=== PATIENT | female | born 1945 | race Hispanic/Latino ===

== ENCOUNTER 2018-09-14 08:47 | Outpatient (CLI) | payer OTHER, MEDICARE ==
--- NOTE | 2018-09-14 10:01 | RAD ---
RIGHT HIP 2 VIEW SERIES: INDICATION: Right hip pain. FINDINGS: There is mild osteoarthritis without fracture or dislocation. Degenerative change is seen within the lower lumbar spine and within the pelvis. There are calcifications of the right hemipelvis not furt her characterized. IMPRESSION: Osteoarthritis of the right hip, without acute fracture. POS: [facility]
--- NOTE | 2018-09-14 10:06 | RAD ---
TWO TO 3 VIEWS LUMBAR SPINE: COMPARISON: . FINDINGS: There is grade I spondylolisthesis at L4-5. Osseous structures are demineralized. There is no evide nce of acute compression fracture. There is prominent degenerative change at the imaged low thoracic spine as well as throughout the lumbar spine. Multilevel degenerative facet sclerosis. Grade I spo ndylolisthesis is seen at L5-S1. Scattered atherosclerotic vascular disease is present. Left convex ity curvature of the lumbar spine is present. IMPRESSION: Multilevel degenerative change of the lumbar spine. No acute compression fracture. POS: [facility]
== END 2018-09-14 08:48 | disposition home or self-care (01) ==
LOC: BICRAD 08:47
PROVIDERS: ATTEND Family Medicine
DX: M54.5 Low back pain (principal); M25.551 Pain in right hip; M47.896 Other spondylosis, lumbar region; M16.11 Unilateral primary osteoarthritis, right hip
CPT/HCPCS: 72100

== ENCOUNTER 2020-02-10 20:49 | Emergency (ER) | payer OTHER, MEDICARE ==
[2020-02-10 21:35] LABS: #Basophils 0.1 thou/uL (0.0-0.2); #Eosinphils 0.1 thou/uL (0.0-0.7); #Lymphocytes 1.2 thou/uL (1.20-3.40); #Monocytes 0.7 thou/uL (0.11-0.59); #Neutrophils 7.5 thou/uL (1.40-6.50); %Basophils 0.6 % (0.0-1.0); %Lymphocytes 12.5 % (21.0-51.0); %Monocytes 7.7 % (0.0-10.0); %Neutrophils 78.2 % (42.0-75.0); Hemoglobin 13.5 g/dL (12.0-16.0); Mean Corpuscular HGB CONC 33.1 g/dL (32.0-36.0); Mean Corpuscular Hemoglobin 30.3 pg (27.0-31.0); Mean Corpuscular Volume 91.5 fL (78.0-98.0); Mean Platelet Volume 7.2 fL (7.4-10.4); Platelet Count 280 thou/uL (130-400); RBC Distribution Width 14.2 % (11.5-14.5); Red Blood Cell (RBC) Count 4.46 mill/uL (4.20-5.40); White Blood Cell (WBC) Count 9.6 thou/uL (4.8-10.8)
[2020-02-10 21:58] LABS: ALT (SGPT) 12 U/L (8-55); AST (SGOT) 11 U/L (5-34); Albumin 4.1 g/dL (3.4-4.8); Alkaline Phosphatase 102 U/L (40-110); Anion Gap 10 mmol/L (10-20); BUN (Urea Nitrogen) 11 mg/dL (9.8-20.1); Bilirubin, Total 0.7 mg/dL (0.2-1.2); Calc. Creatinine Clearance 0 mL/min (70-130); Calcium 9.3 mg/dL (7.8-10.44); Carbon Dioxide 33 mmol/L (23-31); Chloride 99 mmol/L (98-107); Estimated GFR-MDRD 83; Globulin 2.9 g/dL (2.4-3.5); Glucose 157 mg/dL (83-110); Lipase 10 U/L (8-78); Potassium 3.8 mmol/L (3.5-5.1); Sodium 138 mmol/L (136-145)
[2020-02-10 22:54] LABS: Bacteria/HPF None Seen HPF (None Seen); Bilirubin Negative (Negative); Blood, Urine Negative (Negative); Clarity Clear (Clear); Glucose, Urine (Dipstick) Normal (Negative); Leukocyte 75 Leu/uL (Negative); Nitrite Negative (Negative); Protein, Urine (Dipstick) 30 mg/dL (Neg-Trace); Squamous Epithelial 0-3 HPF (0-3); Urobilinogen Normal mg/dL (Less than 2)
[2020-02-11] MEDS ORDERED: Morphine 10 MG/ML VIAL ONE (00:52)
[2020-02-11] MEDS ORDERED: Ondansetron ODT 8 MG TAB ONE (00:52)
--- NOTE | 2020-02-11 07:49 | CT ---
PRELIMINARY REPORT/[facility]/EMERGENCY AFTER HOURS PROCEDURE: PROCEDURE: CT Scan Abdomen and Pelvis without IV Contrast Material. HISTORY: Abdomen pain. TECHNIQUE: Axial images were performed with multiplanar reconstructions without IV contrast material. The patient was not given oral contrast material. COMPARISON: None . FINDINGS: Clear lung bases. Punctate calcified granulomas in the spleen. Liver, adrenals, and pancreas show no abnormality. Kid neys show multiple cortical cysts largest on the RIGHT at 2.5 cm. No urinary tract stones or obstruc tive uropathy. There has been previous cholecystectomy with normal sized biliary tree. No abdominal ascites or pneumoperitoneum. Mild atherosclerosis aorta. No lymphadenopathy. Diverticula with mucosal thickening and pericolonic stranding distal sigmoid colon consistent with di verticulitis with no perforation or abscess. No bowel obstruction. Appendix is not visualized. 14 cm omental umbilical hernia. Pelvis shows previous hysterectomy and no masses or free fluid. Unremarkable urinary bladder. No acute bony abnormality . IMPRESSION: Uncomplicated sigmoid diverticulitis. Large omental umbilical hernia. No other significant abnormality identified. ELECTRONICALLY SIGNED BY: Dat López MD Feb 11, 2020 1:18:43 AM CDT This report is intended for review by the ordering physician only, in accordance of law. If you recei ve this report in error, please call [facility] at [phone]. FINAL REPORT [facility] AFTER HOURS CT ABDOMEN AND PELVIS WITHOUT CONTRAST: FINDINGS/IMPRESSION: I agree with the findings and impression given in the preliminary report per [facility] physici an. 1. Acute diverticulitis. 2. Bilateral renal cysts. 3. Ventral hernia containing fat.
== END 2020-02-11 01:35 | disposition home or self-care (01) ==
LOC: ERS 20:49
DX: K57.32 Diverticulitis of large intestine without perforation or abscess without bleeding (principal); E11.9 Type 2 diabetes mellitus without complications; E78.5 Hyperlipidemia, unspecified; I10 Essential (primary) hypertension
CPT/HCPCS: 36415; 74176; 80053; 81003; 81015; 83690; 85025; 96372; J2270

== ENCOUNTER 2020-04-23 20:00 | Emergency (ER) | payer OTHER, MEDICARE ==
[2020-04-23] MEDS ORDERED: Meclizine HCl 25 MG TAB ONE (21:24)
[2020-04-23 21:25] LABS: #Eosinphils 0.1 thou/uL (0.0-0.7); #Lymphocytes 1.5 thou/uL (1.20-3.40); #Monocytes 0.6 thou/uL (0.11-0.59); #Neutrophils 3.7 thou/uL (1.40-6.50); %Basophils 0.1 % (0.0-1.0); %Eosinophils 1.8 % (0.0-10.0); %Lymphocytes 25.5 % (21.0-51.0); %Monocytes 9.5 % (0.0-10.0); %Neutrophils 63.2 % (42.0-75.0); Hemoglobin 14.1 g/dL (12.0-16.0); Mean Corpuscular HGB CONC 31.9 g/dL (32.0-36.0); Mean Corpuscular Hemoglobin 29.9 pg (27.0-31.0); Mean Corpuscular Volume 93.6 fL (78.0-98.0); Mean Platelet Volume 7.5 fL (7.4-10.4); Platelet Count 307 thou/uL (130-400); Red Blood Cell (RBC) Count 4.73 mill/uL (4.20-5.40); White Blood Cell (WBC) Count 5.8 thou/uL (4.8-10.8)
[2020-04-23 21:46] LABS: ALT (SGPT) 15 U/L (8-55); AST (SGOT) 15 U/L (5-34); Albumin 4.1 g/dL (3.4-4.8); Alkaline Phosphatase 90 U/L (40-110); Anion Gap 15 mmol/L (10-20); BUN (Urea Nitrogen) 12 mg/dL (9.8-20.1); Bilirubin, Total 0.4 mg/dL (0.2-1.2); Calc. Creatinine Clearance 0 mL/min (70-130); Calcium 9.7 mg/dL (7.8-10.44); Carbon Dioxide 28 mmol/L (23-31); Chloride 100 mmol/L (98-107); Estimated GFR-MDRD 80; Globulin 3.1 g/dL (2.4-3.5); Glucose 150 mg/dL (83-110); Protein, Total 7.2 g/dL (6.0-8.3); Sodium 139 mmol/L (136-145)
--- NOTE | 2020-04-24 07:38 | CT ---
HEAD CT WITHOUT CONTRAST: DATE: 04/23/2020. COMPARISON: None. HISTORY: Dizziness. TECHNIQUE: Axial CT imaging at 5 mm intervals from vertex through the skull base without contrast. FINDINGS: The imaged paranasal sinuses and mastoid air cells are well aerated. No displaced calvarial fracture . No intracranial hemorrhage, midline shift, or mass effect. There is a low-density area anteriorly near the vertex on the left suggesting an incidentally noted s mall arachnoid cyst. IMPRESSION: No acute findings. Incidental findings as detailed above. POS: [facility]
--- NOTE | 2020-04-24 07:40 | RAD ---
FRONTAL RADIOGRAPH CHEST: DATE: 04/23/2020. COMPARISON: None. HISTORY: Dizziness and nausea. FINDINGS: Lungs appear clear. Heart and mediastinal contours are grossly unremarkable. There is atherosclerot ic calcification in the aortic arch. IMPRESSION: No focal consolidation or alveolar edema. POS: [facility]
== END 2020-04-23 23:10 | disposition home or self-care (01) ==
LOC: ERS 20:00
DX: R42 Dizziness and giddiness (principal); E11.9 Type 2 diabetes mellitus without complications; E78.5 Hyperlipidemia, unspecified; E78.00 Pure hypercholesterolemia, unspecified; I10 Essential (primary) hypertension; E03.9 Hypothyroidism, unspecified; Z79.4 Long term (current) use of insulin
CPT/HCPCS: 70450; 71045; 80053; 85025; 93005

== ENCOUNTER 2021-02-24 19:00 | Outpatient (CLI) | payer MEDICARE, OTHER | END 2021-02-24 19:01 | disposition home or self-care (01) | LOC: SLEEPLAB 19:00 | PROVIDERS: ATTEND Internal Medicine Cardiovascular Disease | DX: G47.33 Obstructive sleep apnea (adult) (pediatric) (principal); G47.19 Other hypersomnia; G47.9 Sleep disorder, unspecified; R53.83 Other fatigue; I10 Essential (primary) hypertension; R06.83 Snoring; I25.10 Atherosclerotic heart disease of native coronary artery without angina pectoris; E11.9 Type 2 diabetes mellitus without complications; G47.00 Insomnia, unspecified; E66.9 Obesity, unspecified; Z68.43 Body mass index [BMI] 50.0-59.9, adult | CPT/HCPCS: 95810 ==

== ENCOUNTER 2021-04-18 19:00 | Outpatient (CLI) | payer MEDICARE, OTHER | END 2021-04-18 19:01 | disposition home or self-care (01) | LOC: SLEEPLAB 19:00 | PROVIDERS: ATTEND Internal Medicine Cardiovascular Disease | DX: G47.33 Obstructive sleep apnea (adult) (pediatric) (principal); G47.419 Narcolepsy without cataplexy; G47.9 Sleep disorder, unspecified; R53.83 Other fatigue; R06.83 Snoring; E66.9 Obesity, unspecified; I10 Essential (primary) hypertension; Z68.43 Body mass index [BMI] 50.0-59.9, adult | CPT/HCPCS: 95811 ==

== ENCOUNTER 2021-05-05 06:11 | Observation (INO) | payer MEDICARE, OTHER ==
[2021-05-05] MEDS ORDERED: Ondansetron ODT 4 MG TAB ONE (06:37)
[2021-05-05] MEDS ORDERED: Meclizine HCl 25 MG TAB ONE ×2 (06:37→06:38)
[2021-05-05 07:03] LABS: #Eosinphils 0.1 thou/uL (0.0-0.7); #Lymphocytes 1.3 thou/uL (1.20-3.40); #Monocytes 0.5 thou/uL (0.11-0.59); #Neutrophils 3.1 thou/uL (1.40-6.50); %Basophils 0.6 % (0.0-1.0); %Eosinophils 2.5 % (0.0-10.0); %Lymphocytes 26.5 % (21.0-51.0); %Monocytes 8.9 % (0.0-10.0); %Neutrophils 61.5 % (42.0-75.0); Hemoglobin 13.1 g/dL (12.0-16.0); Mean Corpuscular HGB CONC 34.5 g/dL (32.0-36.0); Mean Corpuscular Hemoglobin 31.5 pg (27.0-31.0); Mean Corpuscular Volume 91.4 fL (78.0-98.0); Mean Platelet Volume 6.6 fL (7.4-10.4); Platelet Count 269 thou/uL (130-400); RBC Distribution Width 13.9 % (11.5-14.5); Red Blood Cell (RBC) Count 4.16 mill/uL (4.20-5.40)
[2021-05-05 07:23] LABS: ALT (SGPT) 13 U/L (8-55); AST (SGOT) 16 U/L (5-34); Albumin 3.9 g/dL (3.4-4.8); Alkaline Phosphatase 95 U/L (40-110); Anion Gap 14 mmol/L (10-20); BUN (Urea Nitrogen) 14 mg/dL (9.8-20.1); Bilirubin, Total 0.3 mg/dL (0.2-1.2); Calc. Creatinine Clearance 0 mL/min (70-130); Calcium 8.8 mg/dL (7.8-10.44); Carbon Dioxide 25 mmol/L (23-31); Chloride 102 mmol/L (98-107); Globulin 3.1 g/dL (2.4-3.5); Glucose 112 mg/dL (83-110); Sodium 137 mmol/L (136-145)
[2021-05-05] MEDS ORDERED: Ondansetron PF 4 MG/2 ML Vial IVP PRN (09:18)
[2021-05-05] MEDS ORDERED: Senokot S 8.6-50 MG TAB PO PRN (09:18)
[2021-05-05] MEDS ORDERED: Ondansetron ODT 4 MG TAB PO PRN (09:18)
[2021-05-05] MEDS ORDERED: Dextrose 5% in Water 1,000 ML IV PRN (09:20)
[2021-05-05] MEDS ORDERED: Dextrose 50% Abboject 50 ML SYRINGE SLOW IVP PRN (09:20)
[2021-05-05] MEDS ORDERED: Insulin Regular 300 UNITS/3 ML VIAL SC PRN ×2 (09:20)
[2021-05-05] MEDS ORDERED: Aspirin 325 mg Enteric Coated Tablet PO SCH ×2 (09:30→10:30)
[2021-05-05] MEDS ORDERED: Diazepam 5 MG TAB ONE (09:37)
[2021-05-05] MEDS ORDERED: hydrALAZINE 25 MG TAB PO PRN (09:52)
[2021-05-05] MEDS ORDERED: Amlodipine 5 MG TAB PO PRN (09:52)
[2021-05-05] MEDS ORDERED: Amlodipine 5 MG TAB PO SCH (10:00)
[2021-05-05 10:43] LABS: Troponin I Less than 0.010 ng/mL (< 0.028)
[2021-05-05] MEDS: Losartan 25 MG TAB PO SCH (11:18)
[2021-05-05] MEDS: Hydrochlorothiazide 25 MG TAB PO SCH (11:19)
[2021-05-05] MEDS: Meclizine HCl 25 MG TAB PO SCH ×2 (12:45→20:33)
[2021-05-05 13:05] LABS: Cardiac Risk 3.2 (Less than 4.5)
[2021-05-05] MEDS ORDERED: Cyanocobalamin 1000 MCG/ML VIAL IM SCH (13:15)
[2021-05-05 14:46] LABS: SARS-CoV-2 PCR by NAA Not Detected (NotDetected)
[2021-05-05] MEDS: metFORMIN 500 MG TAB PO SCH (16:26)
[2021-05-05] MEDS ORDERED: Enoxaparin Sodium 40 MG/0.4 ML SYRINGE SC SCH (21:00)
[2021-05-05] MEDS ORDERED: Famotidine 20 MG TAB PO SCH (21:00)
[2021-05-05] MEDS ORDERED: Lantus 1000 UNITS/10 ML VIAL SC SCH ×2 (21:00)
[2021-05-05] MEDS ORDERED: Atorvastatin Calcium 40 MG TAB PO SCH (21:00)
[2021-05-06] MEDS ORDERED: Levothyroxine Sodium 50 MCG TAB PO SCH (06:00)
[2021-05-06] MEDS: Meclizine HCl 25 MG TAB PO SCH ×2 (06:05→14:02)
[2021-05-06] MEDS ORDERED: Pioglitazone HCl 15 MG TAB PO SCH (09:00)
[2021-05-06] MEDS ORDERED: Cyanocobalamin (Vitamin B-12) 1,000 MCG TAB PO SCH (09:00)
[2021-05-06] MEDS ORDERED: Multivitamin W/ Minerals 1 TAB PO SCH (09:00)
[2021-05-06] MEDS ORDERED: Amlodipine 5 MG TAB PO SCH (09:00)
[2021-05-06] MEDS ORDERED: Ezetimibe 10 MG TAB PO SCH (09:00)
[2021-05-06] MEDS ORDERED: Aspirin 325 mg Enteric Coated Tablet PO SCH (09:00)
[2021-05-06] MEDS ORDERED: Rosuvastatin 20 MG TAB PO SCH (09:00)
[2021-05-06] MEDS: metFORMIN 500 MG TAB PO SCH (09:23)
[2021-05-06] MEDS: Hydrochlorothiazide 25 MG TAB PO SCH (11:16)
[2021-05-06] MEDS: Losartan 25 MG TAB PO SCH (11:16)
[2021-05-06 11:19] VITALS: TEMP 97.6
[2021-05-06 11:20] VITALS: BMI 59.5
[2021-05-06 12:05] VITALS: BP 148/65
== END 2021-05-06 14:54 | disposition home or self-care (01) ==
LOC: ERS 06:11 → 2SW 08:59
PROVIDERS: ADMIT Internal Medicine; ATTEND Internal Medicine
DX: R42 Dizziness and giddiness (principal); I10 Essential (primary) hypertension; E78.5 Hyperlipidemia, unspecified; E11.9 Type 2 diabetes mellitus without complications; E03.9 Hypothyroidism, unspecified; M19.90 Unspecified osteoarthritis, unspecified site; K21.9 Gastro-esophageal reflux disease without esophagitis; I87.8 Other specified disorders of veins; F40.240 Claustrophobia; E66.01 Morbid (severe) obesity due to excess calories; Z68.43 Body mass index [BMI] 50.0-59.9, adult; Z79.4 Long term (current) use of insulin; Z79.899 Other long term (current) drug therapy; Z20.822 Contact with and (suspected) exposure to COVID-19; Z86.73 Personal history of transient ischemic attack (TIA), and cerebral infarction without residual deficits
CPT/HCPCS: 70450; 80053; 80061; 82607; 82746; 82962 ×2; 84484; 85025; 93005; 93880; 94760; 96372; 97139 ×6; 97535; 99285; G0378 ×3; U0003; U0005; 36415; 36416; J1650; J3420; Q0162

== ENCOUNTER 2021-07-14 17:23 | Emergency (ER) | payer MEDICARE, OTHER ==
[2021-07-14 20:14] LABS: #Eosinphils 0.1 thou/uL (0.0-0.7); #Lymphocytes 1.4 thou/uL (1.20-3.40); #Monocytes 0.5 thou/uL (0.11-0.59); #Neutrophils 3.5 thou/uL (1.40-6.50); %Basophils 0.5 % (0.0-1.0); %Eosinophils 2.2 % (0.0-10.0); %Lymphocytes 24.6 % (21.0-51.0); %Monocytes 9.3 % (0.0-10.0); %Neutrophils 63.4 % (42.0-75.0); Hemoglobin 13.2 g/dL (12.0-16.0); Mean Corpuscular HGB CONC 33.7 g/dL (32.0-36.0); Mean Corpuscular Hemoglobin 30.9 pg (27.0-31.0); Mean Corpuscular Volume 91.7 fL (78.0-98.0); Mean Platelet Volume 6.4 fL (7.4-10.4); Platelet Count 283 thou/uL (130-400); Red Blood Cell (RBC) Count 4.26 mill/uL (4.20-5.40); White Blood Cell (WBC) Count 5.6 thou/uL (4.8-10.8)
[2021-07-14 20:34] LABS: ALT (SGPT) 15 U/L (8-55); AST (SGOT) 14 U/L (5-34); Albumin 3.9 g/dL (3.4-4.8); Alkaline Phosphatase 116 U/L (40-110); Anion Gap 12 mmol/L (10-20); BUN (Urea Nitrogen) 11 mg/dL (9.8-20.1); Bilirubin, Total 0.3 mg/dL (0.2-1.2); Calc. Creatinine Clearance 0 mL/min (70-130); Carbon Dioxide 29 mmol/L (23-31); Chloride 102 mmol/L (98-107); Globulin 3.4 g/dL (2.4-3.5); Glucose 160 mg/dL (83-110); Potassium 4.1 mmol/L (3.5-5.1); Protein, Total 7.3 g/dL (5.8-8.1); Sodium 139 mmol/L (136-145)
[2021-07-14] MEDS ORDERED: Acetaminophen 500 MG TAB ONE (21:43)
== END 2021-07-14 22:56 | disposition home or self-care (01) ==
LOC: ERS 17:23
DX: I87.8 Other specified disorders of veins (principal); E66.9 Obesity, unspecified; I10 Essential (primary) hypertension; E11.9 Type 2 diabetes mellitus without complications; E78.5 Hyperlipidemia, unspecified; E03.9 Hypothyroidism, unspecified; E78.00 Pure hypercholesterolemia, unspecified; Z79.4 Long term (current) use of insulin
CPT/HCPCS: 36415; 80053; 83605; 83880; 85025; 87040; 93970

== ENCOUNTER 2021-11-29 01:01 | Observation (INO) | payer MEDICARE, OTHER ==
[2021-11-29 02:08] LABS: #Monocytes 0.5 thou/uL (0.11-0.59); #Neutrophils 6.9 thou/uL (1.40-6.50); %Basophils 0.3 % (0.0-1.0); %Eosinophils 0.6 % (0.0-10.0); %Lymphocytes 11.7 % (21.0-51.0); %Monocytes 5.6 % (0.0-10.0); %Neutrophils 81.9 % (42.0-75.0); Hemoglobin 14.4 g/dL (12.0-16.0); Mean Corpuscular HGB CONC 34.4 g/dL (32.0-36.0); Mean Corpuscular Hemoglobin 31.7 pg (27.0-31.0); Mean Corpuscular Volume 91.9 fL (78.0-98.0); Mean Platelet Volume 6.9 fL (7.4-10.4); Platelet Count 285 thou/uL (130-400); RBC Distribution Width 14.3 % (11.5-14.5); Red Blood Cell (RBC) Count 4.54 mill/uL (4.20-5.40); White Blood Cell (WBC) Count 8.4 thou/uL (4.8-10.8)
[2021-11-29] MEDS ORDERED: Morphine 4 MG/ML VIAL ONE (02:32)
[2021-11-29 02:38] LABS: Albumin 4.3 g/dL (3.4-4.8); Chloride 101 mmol/L (98-107)
[2021-11-29 02:39] LABS: Calcium 10.1 mg/dL (7.8-10.44); Potassium 4.4 mmol/L (3.5-5.1); Sodium 140 mmol/L (136-145)
[2021-11-29 02:40] LABS: Globulin 3.8 g/dL (2.4-3.5); Glucose 145 mg/dL (83-110); Protein, Total 8.1 g/dL (5.8-8.1)
[2021-11-29 02:41] LABS: Anion Gap 15 mmol/L (10-20); Carbon Dioxide 28 mmol/L (23-31)
[2021-11-29 02:42] LABS: Bilirubin, Total 0.4 mg/dL (0.2-1.2)
[2021-11-29 02:43] LABS: Alkaline Phosphatase 92 U/L (40-110); Calc. Creatinine Clearance 0 mL/min (70-130)
[2021-11-29 02:44] LABS: BUN (Urea Nitrogen) 15 mg/dL (9.8-20.1)
[2021-11-29 02:45] LABS: AST (SGOT) 22 U/L (5-34)
[2021-11-29 02:46] LABS: ALT (SGPT) 16 U/L (8-55); Lipase 26 U/L (8-78)
[2021-11-29 04:46] LABS: Bacteria/HPF None Seen HPF (None Seen); Bilirubin Negative (Negative); Blood, Urine Trace (Negative); Clarity Clear (Clear); Glucose, Urine (Dipstick) Greater than 1000 mg/dL (Negative); Ketone, Urine Negative (Negative); Leukocyte Negative Leu/uL (Negative); Nitrite Negative (Negative); Protein, Urine (Dipstick) Negative (Neg-Trace); RBC/HPF 0-3 HPF (0-3); Specific Gravity, Urine 1.038 (1.002-1.036); Squamous Epithelial None Seen HPF (0-3); Urobilinogen Normal mg/dL (Less than 2); pH, Urine 6.5 (5.0-9.0)
[2021-11-29] MEDS ORDERED: Sodium Chloride 0.9% 1,000 ML IV SCH (06:15)
[2021-11-29] MEDS ORDERED: Acetaminophen 325 MG TAB PO PRN (06:15)
[2021-11-29 06:18] VITALS: BMI 63.8
[2021-11-29] MEDS ORDERED: Dextrose 50% Abboject 50 ML SYRINGE SLOW IVP PRN (07:00)
[2021-11-29] MEDS ORDERED: HumaLOG 300 UNITS/3 ML VIAL SC PRN ×2 (07:00)
[2021-11-29] MEDS ORDERED: Dextrose 5% in Water 1,000 ML IV PRN (07:00)
[2021-11-29] MEDS ORDERED: hydrALAZINE 20 MG/ML VIAL SLOW IVP PRN (07:01)
[2021-11-29] MEDS ORDERED: Ondansetron PF 4 MG/2 ML Vial IVP PRN (07:06)
[2021-11-29] MEDS ORDERED: Ondansetron ODT 4 MG TAB PO PRN (07:06)
[2021-11-29 07:57] LABS: Magnesium 2.2 mg/dL (1.6-2.6)
[2021-11-29] MEDS: Pantoprazole 40 MG VIAL IVP SCH (09:22)
[2021-11-29] MEDS: Sodium Chloride 0.9% 1,000 ML IV SCH ×2 (09:26→17:42)
[2021-11-29 09:29] LABS: SARS-CoV-2 NAA Rapid Test Not Detected (NotDetected)
[2021-11-29] MEDS: Ketorolac Tromethamine 30 MG/ML VIAL IVP PRN ×2 (11:11→20:43)
[2021-11-29] MEDS ORDERED: Iopamidol-370 76% 500 ML 1 ML ONE (11:52)
[2021-11-29] MEDS ORDERED: Amlodipine 5 MG TAB PO SCH (12:45)
[2021-11-29] MEDS ORDERED: FLU VACC QS2021-22(65YR UP)/PF 240 MCG/0.7 ML SYRINGE IM ONE (14:00)
[2021-11-29] MEDS: Brimonidine Tartrate 0.2% Ophth Soln 5 ml Bottle L EYE SCH (20:42)
[2021-11-29] MEDS: Timolol 0.5% Ophth Soln 5 ml Bottle L EYE SCH (20:47)
[2021-11-30] MEDS: Ketorolac Tromethamine 30 MG/ML VIAL IVP PRN (05:14)
[2021-11-30] MEDS: Sodium Chloride 0.9% 1,000 ML IV SCH (05:27)
[2021-11-30] MEDS ORDERED: Levothyroxine Sodium 50 MCG TAB PO SCH (06:00)
[2021-11-30 07:12] LABS: #Eosinphils 0.1 thou/uL (0.0-0.7); #Lymphocytes 1.1 thou/uL (1.20-3.40); #Monocytes 0.5 thou/uL (0.11-0.59); #Neutrophils 3.2 thou/uL (1.40-6.50); %Basophils 0.1 % (0.0-1.0); %Lymphocytes 22.5 % (21.0-51.0); %Monocytes 9.6 % (0.0-10.0); %Neutrophils 64.7 % (42.0-75.0); Hemoglobin 12.7 g/dL (12.0-16.0); Mean Corpuscular HGB CONC 32.8 g/dL (32.0-36.0); Mean Corpuscular Hemoglobin 30.2 pg (27.0-31.0); Mean Corpuscular Volume 91.9 fL (78.0-98.0); Mean Platelet Volume 6.5 fL (7.4-10.4); Platelet Count 249 thou/uL (130-400); RBC Distribution Width 14.4 % (11.5-14.5); Red Blood Cell (RBC) Count 4.19 mill/uL (4.20-5.40); White Blood Cell (WBC) Count 4.9 thou/uL (4.8-10.8)
[2021-11-30 07:30] LABS: Anion Gap 11 mmol/L (10-20); BUN (Urea Nitrogen) 11 mg/dL (9.8-20.1); Calc. Creatinine Clearance 199 mL/min (70-130); Calcium 8.5 mg/dL (7.8-10.44); Carbon Dioxide 27 mmol/L (23-31); Chloride 105 mmol/L (98-107); Glucose 178 mg/dL (83-110); Potassium 3.6 mmol/L (3.5-5.1); Sodium 139 mmol/L (136-145)
[2021-11-30] MEDS: Pantoprazole 40 MG VIAL IVP SCH (07:57)
[2021-11-30] MEDS: Timolol 0.5% Ophth Soln 5 ml Bottle L EYE SCH (07:57)
[2021-11-30] MEDS: Brimonidine Tartrate 0.2% Ophth Soln 5 ml Bottle L EYE SCH (07:57)
[2021-11-30] MEDS ORDERED: Amlodipine 5 MG TAB PO SCH (09:00)
[2021-11-30] MEDS ORDERED: Saccharomyces boulardii 250 MG CAP PO SCH (09:00)
[2021-11-30] MEDS ORDERED: BROMFENAC SODIUM R EYE SCH (09:00)
[2021-11-30] MEDS ORDERED: Polyethylene Glycol 3350 17 GM Packet PO SCH (11:30)
[2021-11-30 16:38] VITALS: BP 146/75; TEMP 98
[2021-12-01] MEDS ORDERED: Polyethylene Glycol 3350 17 GM Packet PO SCH (09:00)
== END 2021-11-30 17:03 | disposition home or self-care (01) ==
LOC: ERS 01:01 → T4-A 04:17
PROVIDERS: ADMIT Student in an Organized Health Care Education/Training Program; ATTEND Nurse Practitioner Family
DX: K56.600 Partial intestinal obstruction, unspecified as to cause (principal); K42.9 Umbilical hernia without obstruction or gangrene; K57.30 Diverticulosis of large intestine without perforation or abscess without bleeding; I16.0 Hypertensive urgency; E11.9 Type 2 diabetes mellitus without complications; I10 Essential (primary) hypertension; E78.5 Hyperlipidemia, unspecified; H40.9 Unspecified glaucoma; E03.9 Hypothyroidism, unspecified; K21.9 Gastro-esophageal reflux disease without esophagitis; N39.0 Urinary tract infection, site not specified; Z79.4 Long term (current) use of insulin; Z79.84 Long term (current) use of oral hypoglycemic drugs; Z79.890 Hormone replacement therapy; Z79.899 Other long term (current) drug therapy
CPT/HCPCS: 74018; 74177; 80048; 82962 ×2; 83690; 83735; 85025; 93005; U0002; 36415; 36416; 80053; 81003; 81015; 84443; 96374; 96375; 96376; C9113; G0378; J0360; J0744; J1885; J2270; J2405; J7050; Q9967

== ENCOUNTER 2022-03-01 12:45 | Emergency (ER) | payer MEDICARE, OTHER ==
[2022-03-01 13:33] LABS: #Lymphocytes 1.2 thou/uL (1.20-3.40); #Monocytes 0.4 thou/uL (0.11-0.59); #Neutrophils 3.6 thou/uL (1.40-6.50); %Basophils 0.2 % (0.0-1.0); %Eosinophils 0.9 % (0.0-10.0); %Lymphocytes 22.1 % (21.0-51.0); %Monocytes 8.3 % (0.0-10.0); %Neutrophils 68.5 % (42.0-75.0); Hemoglobin 12.5 g/dL (12.0-16.0); Mean Corpuscular HGB CONC 31.1 g/dL (32.0-36.0); Mean Corpuscular Hemoglobin 29.2 pg (27.0-31.0); Mean Corpuscular Volume 93.8 fL (78.0-98.0); Mean Platelet Volume 6.8 fL (7.4-10.4); Platelet Count 269 thou/uL (130-400); RBC Distribution Width 15.4 % (11.5-14.5); Red Blood Cell (RBC) Count 4.29 mill/uL (4.20-5.40); White Blood Cell (WBC) Count 5.3 thou/uL (4.8-10.8)
[2022-03-01 13:56] LABS: ALT (SGPT) 15 U/L (8-55); AST (SGOT) 15 U/L (5-34); Albumin 3.9 g/dL (3.4-4.8); Alkaline Phosphatase 104 U/L (40-110); Anion Gap 11 mmol/L (10-20); BUN (Urea Nitrogen) 15 mg/dL (9.8-20.1); Bilirubin, Total 0.3 mg/dL (0.2-1.2); Calc. Creatinine Clearance 0 mL/min (70-130); Calcium 8.8 mg/dL (7.8-10.44); Carbon Dioxide 25 mmol/L (23-31); Chloride 107 mmol/L (98-107); Glucose 230 mg/dL (83-110); Lipase 22 U/L (8-78); Potassium 4.2 mmol/L (3.5-5.1); Protein, Total 6.9 g/dL (5.8-8.1); Sodium 139 mmol/L (136-145)
[2022-03-01] MEDS ORDERED: Morphine 4 MG/ML VIAL ONE (14:09)
[2022-03-01 14:14] LABS: Bilirubin Negative (Negative); Blood, Urine Negative (Negative); Clarity Clear (Clear); Glucose, Urine (Dipstick) Greater than 1000 mg/dL (Negative); Ketone, Urine Negative (Negative); Leukocyte Negative Leu/uL (Negative); Nitrite Negative (Negative); Protein, Urine (Dipstick) Negative (Neg-Trace); Specific Gravity, Urine 1.038 (1.002-1.036); Urobilinogen Normal mg/dL (Less than 2); pH, Urine 5.5 (5.0-9.0)
== END 2022-03-01 15:43 | disposition home or self-care (01) ==
LOC: ERS 12:45
DX: R10.30 Lower abdominal pain, unspecified (principal); I10 Essential (primary) hypertension; E11.9 Type 2 diabetes mellitus without complications; E78.5 Hyperlipidemia, unspecified; E78.00 Pure hypercholesterolemia, unspecified; E03.9 Hypothyroidism, unspecified; Z79.4 Long term (current) use of insulin; Z79.899 Other long term (current) drug therapy
CPT/HCPCS: 36415; 74177; 80053; 81003; 83690; 85025; 96374; J2270

== ENCOUNTER 2022-04-29 05:38 | Emergency (ER) | payer MEDICARE, OTHER ==
[2022-04-29] MEDS ORDERED: Diazepam 5 MG TAB ONE (06:16)
[2022-04-29] MEDS ORDERED: Amlodipine 5 MG TAB ONE (07:02)
[2022-04-29] MEDS ORDERED: Ketorolac Tromethamine 30 MG/ML VIAL ONE (07:02)
== END 2022-04-29 08:14 | disposition home or self-care (01) ==
LOC: ERS 05:38
DX: G44.209 Tension-type headache, unspecified, not intractable (principal); I10 Essential (primary) hypertension; E03.9 Hypothyroidism, unspecified; E11.9 Type 2 diabetes mellitus without complications; E78.5 Hyperlipidemia, unspecified; E78.00 Pure hypercholesterolemia, unspecified; Z79.4 Long term (current) use of insulin; Z79.899 Other long term (current) drug therapy
CPT/HCPCS: 96372; 99283; J1885

== ENCOUNTER 2022-09-25 12:53 | Emergency (ER) | payer MEDICARE, OTHER ==
[2022-09-25 13:46] LABS: #Eosinphils 0.1 thou/uL (0.0-0.7); #Lymphocytes 1.1 thou/uL (1.20-3.40); #Monocytes 0.4 thou/uL (0.11-0.59); #Neutrophils 3.8 thou/uL (1.40-6.50); %Basophils 0.4 % (0.0-1.0); %Eosinophils 1.5 % (0.0-10.0); %Lymphocytes 20.2 % (21.0-51.0); %Monocytes 7.2 % (0.0-10.0); %Neutrophils 70.7 % (42.0-75.0); Hemoglobin 12.7 g/dL (12.0-16.0); Mean Corpuscular HGB CONC 31.4 g/dL (32.0-36.0); Mean Corpuscular Hemoglobin 28.5 pg (27.0-31.0); Mean Corpuscular Volume 90.8 fl (78.0-98.0); Mean Platelet Volume 7.5 fL (7.4-10.4); Platelet Count 258 thou/uL (130-400); RBC Distribution Width 16.4 % (11.5-14.5); Red Blood Cell (RBC) Count 4.47 mill/uL (4.20-5.40); White Blood Cell (WBC) Count 5.3 thou/uL (4.8-10.8)
[2022-09-25 14:09] LABS: ALT (SGPT) 13 U/L (8-55); AST (SGOT) 14 U/L (5-34); Albumin 3.8 g/dL (3.4-4.8); Alkaline Phosphatase 101 U/L (40-110); Anion Gap 12 mmol/L (10-20); BUN (Urea Nitrogen) 11 mg/dL (9.8-20.1); Bilirubin, Total 0.3 mg/dL (0.2-1.2); Calc. Creatinine Clearance 0 mL/min (70-130); Calcium 8.8 mg/dL (7.8-10.44); Carbon Dioxide 27 mmol/L (23-31); Chloride 106 mmol/L (98-107); Estimated GFR 76; Globulin 3.1 g/dL (2.4-3.5); Glucose 153 mg/dL (83-110); Lipase 19 U/L (8-78); Potassium 4.2 mmol/L (3.5-5.1); Protein, Total 6.9 g/dL (5.8-8.1); Sodium 141 mmol/L (136-145)
== END 2022-09-25 16:20 | disposition home or self-care (01) ==
LOC: ERS 12:53
DX: R60.0 Localized edema (principal); E11.9 Type 2 diabetes mellitus without complications; E78.00 Pure hypercholesterolemia, unspecified; E03.9 Hypothyroidism, unspecified; I10 Essential (primary) hypertension; Z79.899 Other long term (current) drug therapy
CPT/HCPCS: 36415; 80053; 83690; 85025; 99284

== ENCOUNTER 2023-01-14 17:17 | Emergency (ER) | payer MEDICARE ==
[~2023-01-14 17:17] MED LIST: Iopamidol-370 76% 500 ML 1 ML ONE
[2023-01-14] MEDS ORDERED: Aspirin Chewable 81 MG TAB ONE (17:38)
[2023-01-14 18:09] LABS: #Basophils 0.1 thou/uL (0.0-0.2); #Eosinphils 0.1 thou/uL (0.0-0.7); #Lymphocytes 1.2 thou/uL (1.20-3.40); #Monocytes 0.5 thou/uL (0.11-0.59); %Basophils 0.9 % (0.0-1.0); %Eosinophils 1.8 % (0.0-10.0); %Lymphocytes 20.1 % (21.0-51.0); %Monocytes 8.9 % (0.0-10.0); %Neutrophils 68.3 % (42.0-75.0); Hemoglobin 12.5 g/dL (12.0-16.0); Mean Corpuscular HGB CONC 32.5 g/dL (32.0-36.0); Mean Corpuscular Hemoglobin 29.1 pg (27.0-31.0); Mean Corpuscular Volume 89.5 fl (78.0-98.0); Mean Platelet Volume 8.5 fL (7.4-10.4); Platelet Count 212 10x3/uL (130-400); Red Blood Cell (RBC) Count 4.31 mill/uL (4.20-5.40); White Blood Cell (WBC) Count 5.9 10x3/uL (4.8-10.8)
[2023-01-14 18:32] LABS: ALT (SGPT) 10 U/L (8-55); AST (SGOT) 16 U/L (5-34); Albumin 3.7 g/dL (3.4-4.8); Alkaline Phosphatase 107 U/L (40-110); Anion Gap 13 mmol/L (10-20); BUN (Urea Nitrogen) 20 mg/dL (9.8-20.1); Bilirubin, Total 0.4 mg/dL (0.2-1.2); Calc. Creatinine Clearance 0 mL/min (70-130); Calcium 9.4 mg/dL (7.8-10.44); Carbon Dioxide 26 mmol/L (23-31); Chloride 105 mmol/L (98-107); Estimated GFR 88; Globulin 3.3 g/dL (2.4-3.5); Glucose 174 mg/dL (83-110); Potassium 4.2 mmol/L (3.5-5.1); Sodium 140 mmol/L (136-145)
== END 2023-01-14 20:40 | disposition home or self-care (01) ==
LOC: ERS 17:17
DX: R07.9 Chest pain, unspecified (principal); M94.0 Chondrocostal junction syndrome [Tietze]; E11.9 Type 2 diabetes mellitus without complications; E78.00 Pure hypercholesterolemia, unspecified; I10 Essential (primary) hypertension; E03.9 Hypothyroidism, unspecified; Z79.4 Long term (current) use of insulin
CPT/HCPCS: 71045; 71275; 80053; 83880; 84484; 85025; 93005; Q9967

== ENCOUNTER 2023-03-16 03:29 | Emergency (ER) | payer MEDICARE ==
[2023-03-16] MEDS ORDERED: Lidocaine 1% MPF 2 ML VIAL ONE (04:21)
[2023-03-16] MEDS ORDERED: cefTRIAXone (ROCEPHIN) 1 GM VIAL ONE (04:21)
[2023-03-16 04:46] LABS: #Eosinphils 0.1 thou/uL (0.0-0.7); #Monocytes 0.7 thou/uL (0.11-0.59); %Basophils 0.2 % (0.0-1.0); %Eosinophils 0.9 % (0.0-10.0); %Lymphocytes 8.6 % (21.0-51.0); %Monocytes 6.2 % (0.0-10.0); %Neutrophils 84.2 % (42.0-75.0); Hemoglobin 12.4 g/dL (12.0-16.0); Mean Corpuscular HGB CONC 30.7 g/dL (32.0-36.0); Mean Corpuscular Volume 91.2 fl (78.0-98.0); Mean Platelet Volume 7.5 fL (7.4-10.4); Platelet Count 239 10x3/uL (130-400); RBC Distribution Width 16.1 % (11.5-14.5); Red Blood Cell (RBC) Count 4.44 mill/uL (4.20-5.40); White Blood Cell (WBC) Count 11.9 10x3/uL (4.8-10.8)
[2023-03-16 05:06] LABS: ALT (SGPT) 8 U/L (8-55); AST (SGOT) 14 U/L (5-34); Albumin 3.8 g/dL (3.4-4.8); Alkaline Phosphatase 96 U/L (40-110); Anion Gap 16 mmol/L (10-20); BUN (Urea Nitrogen) 14 mg/dL (9.8-20.1); Bilirubin, Total 0.3 mg/dL (0.2-1.2); Calc. Creatinine Clearance 0 mL/min (70-130); Carbon Dioxide 18 mmol/L (23-31); Chloride 106 mmol/L (98-107); Estimated GFR 91; Globulin 3.4 g/dL (2.4-3.5); Glucose 99 mg/dL (83-110); Lipase 30 U/L (8-78); Potassium 4.2 mmol/L (3.5-5.1); Protein, Total 7.2 g/dL (5.8-8.1); Sodium 136 mmol/L (136-145)
== END 2023-03-16 05:13 | disposition home or self-care (01) ==
LOC: ERS 03:29
DX: L03.311 Cellulitis of abdominal wall (principal); E11.9 Type 2 diabetes mellitus without complications; Z79.4 Long term (current) use of insulin; I10 Essential (primary) hypertension; E03.9 Hypothyroidism, unspecified; E78.00 Pure hypercholesterolemia, unspecified
CPT/HCPCS: 36415; 71045; 80053; 83605; 83690; 85025; 96372; J0696

== ENCOUNTER 2024-08-25 20:42 | Emergency (ER) | payer MEDICARE ==
[2024-08-25 21:43] LABS: #Basophils Less than 0.03 10x3/uL (0.0-0.2); #Eosinphils Less than 0.03 10x3/uL (0.0-0.7); %Basophils 0.4 % (0.0-1.0); %Eosinophils 0.4 % (0.0-10.0); %Lymphocytes 36.1 % (21.0-51.0); %Monocytes 15.7 % (0.0-10.0); Hematocrit 38.6 % (36.0-47.0); Hemoglobin 11.6 g/dL (12.0-16.0); Mean Corpuscular HGB CONC 30.1 g/dL (32.0-36.0); Mean Platelet Volume 8.8 fL (7.4-10.4); Platelet Count 254 10x3/uL (130-400); RBC Distribution Width 18.7 % (11.5-14.5); Red Blood Cell (RBC) Count 4.15 mill/uL (4.20-5.40)
[2024-08-25 21:56] LABS: ALT (SGPT) 9 U/L (8-55); AST (SGOT) 17 U/L (5-34); Alkaline Phosphatase 100 U/L (40-110); Anion Gap 15 mmol/L (10-20); BUN (Urea Nitrogen) 14 mg/dL (9.8-20.1); Bilirubin, Total 0.2 mg/dL (0.2-1.2); Calc. Creatinine Clearance 0 mL/min (70-130); Calcium 8.6 mg/dL (7.8-10.44); Carbon Dioxide 20 mmol/L (23-31); Chloride 107 mmol/L (98-107); Estimated GFR 92; Globulin 3.9 g/dL (2.4-3.5); Glucose 244 mg/dL (83-110); Potassium 4.1 mmol/L (3.5-5.1); Protein, Total 6.9 g/dL (5.8-8.1); Sodium 138 mmol/L (136-145)
[2024-08-25 22:05] LABS: Influenza A by NAA Not Detected (NotDetected); Influenza B by NAA Not Detected (NotDetected); SARS-CoV-2 NAA Rapid Test DETECTED (NotDetected)
[2024-08-25] MEDS ORDERED: Ketorolac Tromethamine 30 MG (1 mL) VIAL ONE (22:25)
[2024-08-25] MEDS ORDERED: Amoxicillin/Potassium Clav 875 MG TAB ONE (22:25)
[2024-08-25] MEDS ORDERED: predniSONE 20 MG TAB ONE (22:25)
== END 2024-08-25 22:39 | disposition home or self-care (01) ==
LOC: ERS 20:42
DX: U07.1 COVID-19 (principal); E11.9 Type 2 diabetes mellitus without complications; I10 Essential (primary) hypertension; Z79.4 Long term (current) use of insulin
CPT/HCPCS: 0240U; 71045; 80053; 85025; 93005; J1885; 36415; 96374; J7512

== ENCOUNTER 2024-09-10 10:21 | Emergency (ER) | payer MEDICARE, OTHER ==
[2024-09-10] MEDS ORDERED: HYDROcodone/Acetaminophen 10/325 mg Tablet ONE (12:28)
== END 2024-09-10 12:37 | disposition home or self-care (01) ==
LOC: ERS 10:21
DX: I87.8 Other specified disorders of veins (principal); E11.9 Type 2 diabetes mellitus without complications; I10 Essential (primary) hypertension

== ENCOUNTER 2024-11-16 09:06 | Emergency (ER) | payer MEDICARE, OTHER ==
[2024-11-16] MEDS ORDERED: Albuterol 200 PUFF (6.7GM INHALER) ONE (09:51)
[2024-11-16 09:52] LABS: #Basophils 0.04 10x3/uL (0.0-0.2); %Basophils 0.6 % (0.0-1.0); %Eosinophils 1.8 % (0.0-10.0); %Monocytes 8.7 % (0.0-10.0); %Neutrophils 55.6 % (42.0-75.0); Hematocrit 40.1 % (36.0-47.0); Hemoglobin 12.5 g/dL (12.0-16.0); Mean Corpuscular HGB CONC 31.2 g/dL (32.0-36.0); Mean Corpuscular Hemoglobin 27.7 pg (27.0-31.0); Mean Corpuscular Volume 88.9 fL (78.0-98.0); Mean Platelet Volume 9.7 fL (7.4-10.4); Platelet Count 278 10x3/uL (130-400); RBC Distribution Width 18.6 % (11.5-14.5); Red Blood Cell (RBC) Count 4.51 mill/uL (4.20-5.40)
[2024-11-16 10:08] LABS: Prothrombin Time 13.2 sec (12.0-14.7)
[2024-11-16 10:09] LABS: PTT 33.8 sec (22.9-36.1)
[2024-11-16 10:17] LABS: Troponin I Less than 0.010 ng/mL (< 0.028)
[2024-11-16 10:41] LABS: ALT (SGPT) 9 U/L (8-55); AST (SGOT) 15 U/L (5-34); Albumin 3.4 g/dL (3.4-4.8); Alkaline Phosphatase 97 U/L (40-110); Anion Gap 14 mmol/L (10-20); BUN (Urea Nitrogen) 12 mg/dL (9.8-20.1); Bilirubin, Total 0.3 mg/dL (0.2-1.2); Calc. Creatinine Clearance 0 mL/min (70-130); Calcium 9.1 mg/dL (7.8-10.44); Carbon Dioxide 27 mmol/L (23-31); Chloride 105 mmol/L (98-107); Estimated GFR 91; Globulin 4.4 g/dL (2.4-3.5); Glucose 177 mg/dL (83-110); Potassium 4.6 mmol/L (3.5-5.1); Protein, Total 7.8 g/dL (5.8-8.1); Sodium 141 mmol/L (136-145)
[2024-11-16] MEDS ORDERED: Benzonatate 100 MG CAP ONE (11:17)
== END 2024-11-16 11:31 | disposition home or self-care (01) ==
LOC: ERS 09:06
DX: J20.9 Acute bronchitis, unspecified (principal); E11.9 Type 2 diabetes mellitus without complications; I10 Essential (primary) hypertension; E78.5 Hyperlipidemia, unspecified; I89.0 Lymphedema, not elsewhere classified; Z79.4 Long term (current) use of insulin; I87.8 Other specified disorders of veins
CPT/HCPCS: 71046; 80053; 84484; 85025; 85610; 85730; 87428; 93005